=== PATIENT | male | born 1975 | race African-American/Black ===

== ENCOUNTER 2018-10-19 16:03 | Inpatient (IN) | payer SELFPAY ==
[~2018-10-19] VITALS: Ht 180.3 cm; Wt 97.5 kg
[2018-10-19] MEDS ORDERED: ACETAMINOPHEN 500 MG TABLET PO ONE (17:15)
[2018-10-19] MEDS ORDERED: BENZONATATE 100 MG CAPSULE. PO ONE (17:15)
[2018-10-19] MEDS ORDERED: IV NORMAL SALINE 1000ML BAG 1,000 ML IV ONE (17:15)
[2018-10-19] MEDS ORDERED: predniSONE 10 MG TABLET PO ONE (17:15)
[2018-10-19] MEDS ORDERED: IPRATRPIUM/ALBUTEROL 0.5/2.5MG 3 ML NEBU. NEB ONE (17:15)
--- NOTE | 2018-10-19 17:18 | PHYS DOC ---
Adult General Chief Complaint Chief Complaint: FEVER HPI HPI Patient is a 43 year old male who presents with 2 weeks of cough, chills, fever , nausea. Patient states he did cough up some mucus imaging was going. Patient arrives with a fever of 100.2, heart rate 125, 94% on room air. (TREVON MIRELES APRN) Review of Systems Review of Systems Constitutional: fever or chills [] Eyes: Denies change in visual acuity, redness, or eye pain [] HENT: Denies nasal congestion or sore throat [] Respiratory: cough or shortness of breath [] Cardiovascular: No additional information not addressed in HPI [] GI: Denies abdominal pain, + nausea, denies vomiting, denies bloody stools or nice diarrhea [] : Denies dysuria or hematuria [] Musculoskeletal: Denies back pain or joint pain [] Integument: Denies rash or skin lesions [] Neurologic: Denies headache, focal weakness or sensory changes [] All other systems were reviewed and found to be within normal limits, except as documented in this note. (TREVON MIRELES APRN) Current Medications Current Medications Current Medications Medications (Trade) Dose Ordered Sig/Shabbir Start Time Stop Time Status Last Admin Dose Admin Acetaminophen (Tylenol) 1,000 mg 1X ONCE 10/19/18 17:10/19/18 17:25 DC 10/19/18 17:35 1,000 MG Albuterol/ Ipratropium (Duoneb) 3 ml 1X ONCE 10/19/18 17:15 10/19/18 17:25 DC 10/19/18 17:40 3 ML Benzonatate (Tessalon Perle) 100 mg 1X ONCE 10/19/18 17:15 10/19/18 17:25 DC 10/19/18 17:35 100 MG Prednisone (Prednisone) 50 mg 1X ONCE 10/19/18 17:15 10/19/18 17:25 DC 10/19/18 17:35 50 MG Sodium Chloride 1,000 ml @ 1,000 mls/hr 1X ONCE 10/19/18 17:15 10/19/18 18:14 DC 10/19/18 17:35 1,000 MLS/HR (LENY BLOOM MD) Allergies Allergies Allergies Coded Allergies Type Severity Reaction Last Updated Verified No Known Drug Allergies 10/19/18 No (LENY BLOOM MD) Physical Exam Physical Exam Constitutional: Well developed, well nourished, no acute distress, non-toxic appearance. [] HENT: Normocephalic, atraumatic, bilateral external ears normal, oropharynx moist, no oral exudates, nose normal. [] Eyes: PERRLA, EOMI, conjunctiva normal, no discharge. [] Neck: Normal range of motion, no tenderness, supple, no stridor. [] Cardiovascular:Heart rate tachycardia rhythm, no murmur [] Lungs & Thorax: Bilateral upper breath sounds clear to auscultation in bilateral lower breath sounds have slight coarse sounds to auscultation.[] Abdomen: Bowel sounds normal, soft, no tenderness, no masses, no pulsatile masses. [] Skin: Warm, dry, no erythema, no rash. [] Back: No tenderness, no CVA tenderness. [] Extremities: No tenderness, no cyanosis, no clubbing, ROM intact, no edema. [] Neurologic: Alert and oriented X 3, normal motor function, normal sensory function, no focal deficits noted. [] Psychologic: Affect normal, judgement normal, mood normal. [] (TREVON MIRELES APRN) Current Patient Data Vital Signs Vital Signs Date Time Temp Pulse Resp B/P (MAP) Pulse Ox O2 Delivery O2 Flow Rate FiO2 10/19/18 18:53 146/68 (94) Room Air 10/19/18 17:41 94 10/19/18 16:57 100.2 124 20 100.2 (LENY BLOOM MD) Lab Values Laboratory Tests Test 10/19/18 19:00 Lactic Acid Level 1.3 mmol/L (0.4-2.0) (LENY BLOOM MD) Lab Values Laboratory Tests Test 10/19/18 19:00 Lactic Acid Level 1.3 mmol/L (0.4-2.0) (TREVON MIRELES APRN) EKG EKG Sinus tachy and no STEMI Interpretation Time: [address] Bloom (TREVON MIRELES APRN) Radiology/Procedures Radiology/Procedures [] (TREVON MIRELES APRN) Impressions: [facility] [address] [place] [address] IMAGING REPORT Signed PATIENT: EPI DIOR ACCOUNT: [id number] : 1975 LOCATION: ER AGE: 43 SEX: M EXAM STATUS: REG ER ORD. PHYSICIAN: TREVON MIRELES APRN REASON: cough PROCEDURE: CHEST PA & LATERAL EXAM: PA and Lateral Views of the Chest DATE: 10/19/2018 5:18 PM INDICATION: COUGH, WHEEZING, MID-CHEST PAIN X2 WEEKS COMPARISON: No Prior FINDINGS: The heart is not enlarged. Prominence of the pulmonary arterial trunk may be seen with pulmonary arterial hypertension. Airspace opacities in the left lower lobe at the lateral and posterior costophrenic angle, likely consolidation. No pleural effusion or pneumothorax. IMPRESSION: 1. Left lung base airspace opacities, likely consolidative process such as pneumonia. 2. Prominence of pulmonary arterial trunk may be seen with pulmonary arterial hypertension. Electronically signed by: Henok Ruff MD (10/19/2018 5:50 PM) [facility] DICTATED and SIGNED BY: HENOK RUFF MD DATE: 10/19/18 9370 (TREVON MIRELES APRN) Course & Med Decision Making Course & Med Decision Making Patient is a 43 year old male who presents with 2 weeks of cough, chills, fever , nausea. Patient states he did cough up some mucus imaging was going. Patient arrives with a fever of 100.2, heart rate 125, 94% on room air. Alert and oriented. Speaks in full clear sentences. Mucous membranes are moist. Skin is pink warm and dry. Abdomen is soft and nontender. Lungs are clear in upper lobes but have slight coarse sounds to lower lobes bilaterally. Heart rate tachycardia but no murmur. No peripheral edema. Throat is pink and without exudates or swelling. Bilateral ear tympanic are boggy in color. Ambulatory with a steady gait. States he has chest tightness and some shortness of breath. Chest xray shows 1. Left lung base airspace opacities, likely consolidative process such as pneumonia. 2. Prominence of pulmonary arterial trunk may be seen with pulmonary arterial hypertension. Heart rate 102. 93% on RA when sitting. Walking O2 Saturation is 89% with a heart rate of 119. Patient to be admitted for Pneumonia and to receive IV antibiotics. Blood cultures and Lactic acid have been drawn and sent to lab. 1925: Lab has called and states CBC and BMP are hemolyzed and have to be redrawn. I have spoken to Dr Franklin concerning admission. (TREVON MIRELES APRN) Course & Med Decision Making Staff Physician Addendum: I was working in the ER during the course of this patient's visit. I was available for consultation as needed, but I was not directly involved in the care of this patient. (LENY BLOOM MD) Dragon Disclaimer Dragon Disclaimer This electronic medical record was generated, in whole or in part, using a voice recognition dictation system. (TREVON MIRELES APRN) Departure Departure Impression: Primary Impression: Pneumonia Disposition: 09 ADMITTED INPATIENT Admitting Physician: Jesus Manuel Feliciano (TREVON MIRELES APRN) Condition: STABLE Referrals: UNKNOWN PCP NAME (PCP) Problem Qualifiers Primary Impression: Pneumonia Pneumonia type: due to unspecified organism Laterality: left Lung location : lower lobe of lung Qualified Codes: J18.1 - Lobar pneumonia, unspecified organism TREVON MIRELES APRN Oct 19, 2018 17:18 LENY BLOOM MD Oct 20, 2018 08:10
--- NOTE | 2018-10-19 17:53 | RAD ---
EXAM: PA and Lateral Views of the Chest DATE: 10/19/2018 5:18 PM INDICATION: COUGH, WHEEZING, MID-CHEST PAIN X2 WEEKS COMPARISON: No Prior FINDINGS: The heart is not enlarged. Prominence of the pulmonary arterial trunk may be seen with pulmonary arterial hypertension. Airspace opacities in the left lower lobe at the lateral and posterior costophrenic angle, likely consolidation. No pleural effusion or pneumothorax. IMPRESSION: 1. Left lung base airspace opacities, likely consolidative process such as pneumonia. 2. Prominence of pulmonary arterial trunk may be seen with pulmonary arterial hypertension. Electronically signed by: Henok Christina MD (10/19/2018 5:50 PM) [facility]
[2018-10-19] MEDS ORDERED: cefTRIAXone IV Push 1 GM VIAL. IVP ONE (19:15)
[2018-10-19] MEDS ORDERED: DOXYCYCLINE HYCLATE 100 MG in IV DEXTROSE 5% 100ML 100 ML IV ONE (19:15)
[2018-10-19] MEDS ORDERED: ONDANSETRON PF 4 MG/2 ML VIAL. IV PRN (19:30)
[2018-10-19] MEDS ORDERED: ACETAMINOPHEN 325 MG TABLET. PO PRN (19:30)
[2018-10-19] MEDS ORDERED: fentaNYL PF VIAL 100 MCG/2 ML VIAL IV PRN (19:30)
[2018-10-19] MEDS: IPRATRPIUM/ALBUTEROL 0.5/2.5MG 3 ML NEBU. NEB SCH (20:00)
[2018-10-19 20:15] LABS: BASO # 0.1 x10^3/uL (0.0-0.2); BASO % 1 % (0-3); EOS % 0 % (0-3); HEMATOCRIT 35.8 % (39.0-53.0); HEMOGLOBIN 11.7 g/dL (13.0-17.5); LYMPH % 5 % (24-48); MEAN CORPUSCULAR HEMOGLOBIN 28 pg (25-35); MEAN CORPUSCULAR HGB CONC 33 g/dL (31-37); MEAN CORPUSCULAR VOLUME 85 fL (79-100); MONO # 0.5 x10^3/uL (0.0-1.1); MONO % 3 % (0-9); NEUT # 16.2 x10^3uL (1.8-7.7); NEUT % 91 % (31-73); PLATELET COUNT 313 x10^3/uL (140-400); RED BLOOD COUNT 4.22 x10^6/uL (4.30-5.70); RED CELL DISTRIBUTION WIDTH 13.3 % (11.5-14.5); WHITE BLOOD COUNT 17.8 x10^3/uL (4.0-11.0)
[2018-10-19 20:24] LABS: CALCIUM 9.5 mg/dL (8.5-10.1); GFR 98.7; POTASSIUM 4.3 mmol/L (3.5-5.1)
[2018-10-19 20:35] LABS: INFLUENZA A PATIENT NEGATIVE (NEGATIVE); INFLUENZA B PATIENT NEGATIVE (NEGATIVE)
[2018-10-19 22:42] LABS: % EOS 1 % (0-5); % LYMPHS 4 % (24-48); % MONOS 4 % (0-10); % SEGS 91 % (35-66); OVALOCYTES OCC; PLT ESTIMATE ADEQUATE (ADEQUATE); SCHISTOCYTES OCC
[2018-10-19 23:00] VITALS: BP 114/67
--- NOTE | 2018-10-20 00:23 | NUR ---
no home medications reported. reports no preference for pharmacy. Addendum: 10/20/18 at 0024 by REHAN RODRIGUEZ RN Amended: Links added.
[2018-10-20 03:12] VITALS: BP 121/66
[2018-10-20 07:00] VITALS: BP 122/70
[2018-10-20] MEDS: IPRATRPIUM/ALBUTEROL 0.5/2.5MG 3 ML NEBU. NEB SCH (07:36)
[2018-10-20] MEDS ORDERED: guaiFENesin DM 200MG/20MG 10 ML SYRUP PO PRN (08:30)
[2018-10-20] MEDS ORDERED: AMOX1TAB61 PO (08:43)
[2018-10-20] MEDS ORDERED: cefTRIAXone IV Push 1 GM VIAL. IVP SCH ×2 (08:45→20:00)
--- NOTE | 2018-10-20 08:45 | PDOC1 ---
History and Physical Date of Admission Date of Admission DATE: 10/20/18 TIME: 08:36 Source Source: Chart review, Patient History of Present Illness History of Present Illness En is a 43 yo male admit overnight with pneumonia. He has not felt well for 2 weeks, but then markedly worse yesteday and last night, acute dyspnea, weakness and cough with sputum. In ER, fever of 100.2, heart rate 125, 94% on room air. 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 no home meds, no PMH Past Medical History Cardiovascular: No pertinent hx Pulmonary: No pertinent hx GI: No pertinent hx Heme/Onc: No pertinent hx Rheumatologic: No pertinent hx Infectious disease: No pertinent hx Endocrine: No pertinent hx Family History Family History: Diabetes (mom) Family History: Parent Social History Smoke: No ALCOHOL: rare Drugs: None Current Problem List Problem List Problems Medical Problems: (1) Pneumonia Status: Acute Current Medications Current Medications Current Medications Acetaminophen (Tylenol) 1,000 mg 1X ONCE PO Last administered on 10/19/18at 17: 35; Start 10/19/18 at 17:15; Stop 10/19/18 at 17:25; Status DC Benzonatate (Tessalon Perle) 100 mg 1X ONCE PO Last administered on 10/19/18at 17:35; Start 10/19/18 at 17:15; Stop 10/19/18 at 17:25; Status DC Prednisone (Prednisone) 50 mg 1X ONCE PO Last administered on 10/19/18at 17:35 ; Start 10/19/18 at 17:15; Stop 10/19/18 at 17:25; Status DC Albuterol/ Ipratropium (Duoneb) 3 ml 1X ONCE NEB Last administered on at 17:40; Start 10/19/18 at 17:15; Stop 10/19/18 at 17:25; Status DC Sodium Chloride 1,000 ml @ 1,000 mls/hr 1X ONCE IV Last administered on at 17:35; Start 10/19/18 at 17:15; Stop 10/19/18 at 18:14; Status DC Doxycycline Hyclate 100 mg/ Dextrose 100 ml @ 50 mls/hr 1X ONCE IV Last administered on 10/19/18at 19:18; Start 10/19/18 at 19:15; Stop 10/19/18 at 21:14 ; Status DC Ceftriaxone Sodium (Rocephin) 1 gm 1X ONCE IVP Last administered on 10/19/18at 19:17; Start 10/19/18 at 19:15; Stop 10/19/18 at 19:16; Status DC Ondansetron HCl (Zofran) 4 mg PRN Q8HRS PRN IV NAUSEA/VOMITING; Start 10/19/18 at 19:30; Stop 10/20/18 at 19:29 Fentanyl Citrate (Fentanyl 2ml Vial) 50 mcg PRN Q1HR PRN IV PAIN; Start at 19:30; Stop 10/20/18 at 19:29 Acetaminophen (Tylenol) 650 mg PRN Q4HRS PRN PO FEVER; Start 10/19/18 at 19:30 ; Stop 10/20/18 at 19:29 Albuterol/ Ipratropium (Duoneb) 3 ml RTQID NEB Last administered on 10/20/18at 07:36; Start 10/19/18 at 20:00; Stop 10/20/18 at 19:59 Allergies Allergies: Coded Allergies: No Known Drug Allergies (Unverified , 10/19/18) ROS General: YES: Chills, Fatigue, Malaise PSYCHOLOGICAL ROS: No: Anxiety, Behavioral Disorder, Concentration difficultie , Decreased libido, Depression, Disorientation, Hallucinations, Hostility, Irritablity, Memory difficulties, Mood Swings, Obsessive thoughts, Physical abuse, Sexual abuse, Sleep disturbances, Suicidal ideation, Other Eyes: No Blurry vision, No Decreased vision, No Double vision, No Dry eyes, No Excessive tearing, No Eye Pain, No Itchy Eyes, No Loss of vision, No Photophobia , No Scotomata, No Uses contacts, No Uses glasses, No Other HEENT: No: Heacaches, Visual Changes, Hearing change, Nasal congestion, Nasal discharge, Oral lesions, Sinus pain, Sore Throat, Epistaxis, Sneezing, Snoring, Tinnitus, Vertigo, Vocal changes, Other Respiratory: YES: SOB with excertion, Sputum Changes Cardiovascular: No Chest Pain, No Palpitations, No Orthopnea, No Paroxysmal Noc. Dyspnea, No Edema, No Lt Headedness, No Other Gastrointestinal: No Nausea, No Vomiting, No Abdominal Pain, No Diarrhea, No Constipation, No Melena, No Hematochezia, No Other Genitourinary: No Dysuria, No Frequency, No Incontinence, No Hematuria, No Retention, No Discharge, No Urgency, No Pain, No Flank Pain, No Other, No , No , No , No , No , No , No Musculoskeletal: No Gait Disturbance, No Joint Pain, No Joint Stiffness, No Joint Swelling, No Muscle Pain, No Muscular Weakness, No Pain In:, No Swelling In:, No Other Neurological: No Behavorial Changes, No Bowel/Bladder ControlChng, No Confusion , No Dizziness, No Gait Disturbance, No Headaches, No Impaired Coord/balance, No Memory Loss, No Numbness/Tingling, No Seizures, No Speech Problems, No Tremors, No Visual Changes, No Weakness, No Other Skin: No Dry Skin, No Eczema, No Hair Changes, No Lumps, No Mole Changes, No Mottling, No Nail Changes, No Pruritus, No Rash, No Skin Lesion Changes, No Other, No Acne Physical Exam General: Alert, Oriented X3, Cooperative, No acute distress HEENT: PERRLA Lungs: Normal air movement, Other (rales, ) Heart: S1S2, no murmurs Rectal Exam: not examined Extremities: No cyanosis Skin: No rashes Neuro: Normal gait, Normal tone, Sensation intact Psych/Mental Status: Mental status NL, Mood NL Vitals Vitals Vital Signs Date Time Temp Pulse Resp B/P (MAP) Pulse Ox O2 Delivery O2 Flow Rate FiO2 10/20/18 07:38 92 Room Air 10/20/18 03:12 97.4 75 20 121/66 (84) 97.4 Labs Labs Laboratory Tests Test 10/19/18 19:00 10/19/18 19:30 10/19/18 20:00 Lactic Acid Level 1.3 mmol/L (0.4-2.0) Influenza Type A Antigen Negative (NEGATIVE) Influenza Type B Antigen Negative (NEGATIVE) White Blood Count 17.8 x10^3/uL (4.0-11.0) Red Blood Count 4.22 x10^6/uL (4.30-5.70) Hemoglobin 11.7 g/dL (13.0-17.5) Hematocrit 35.8 % (39.0-53.0) Mean Corpuscular Volume 85 fL (79-100) Mean Corpuscular Hemoglobin 28 pg (25-35) Mean Corpuscular Hemoglobin Concent 33 g/dL (31-37) Red Cell Distribution Width 13.3 % (11.5-14.5) Platelet Count 313 x10^3/uL (140-400) Neutrophils (%) (Auto) 91 % (31-73) Lymphocytes (%) (Auto) 5 % (24-48) Monocytes (%) (Auto) 3 % (0-9) Eosinophils (%) (Auto) 0 % (0-3) Basophils (%) (Auto) 1 % (0-3) Neutrophils # (Auto) 16.2 x10^3uL (1.8-7.7) Lymphocytes # (Auto) 1.0 x10^3/uL (1.0-4.8) Monocytes # (Auto) 0.5 x10^3/uL (0.0-1.1) Eosinophils # (Auto) 0.0 x10^3/uL (0.0-0.7) Basophils # (Auto) 0.1 x10^3/uL (0.0-0.2) Segmented Neutrophils % 91 % (35-66) Lymphocytes % 4 % (24-48) Monocytes % 4 % (0-10) Eosinophils % 1 % (0-5) Platelet Estimate Adequate (ADEQUATE) Large Platelets Occ Ovalocytes Occ Crenated Cell Present Schistocytes Occ Sodium Level 135 mmol/L (136-145) Potassium Level 4.3 mmol/L (3.5-5.1) Chloride Level 100 mmol/L (98-107) Carbon Dioxide Level 24 mmol/L (21-32) Anion Gap 11 (6-14) Blood Urea Nitrogen 13 mg/dL (8-26) Creatinine 1.0 mg/dL (0.7-1.3) Estimated GFR (Cockcroft-Gault) 98.7 Glucose Level 120 mg/dL (70-99) Calcium Level 9.5 mg/dL (8.5-10.1) Laboratory Tests Test 10/19/18 19:00 10/19/18 19:30 10/19/18 20:00 Lactic Acid Level 1.3 mmol/L (0.4-2.0) Influenza Type A Antigen Negative (NEGATIVE) Influenza Type B Antigen Negative (NEGATIVE) White Blood Count 17.8 x10^3/uL (4.0-11.0) Red Blood Count 4.22 x10^6/uL (4.30-5.70) Hemoglobin 11.7 g/dL (13.0-17.5) Hematocrit 35.8 % (39.0-53.0) Mean Corpuscular Volume 85 fL (79-100) Mean Corpuscular Hemoglobin 28 pg (25-35) Mean Corpuscular Hemoglobin Concent 33 g/dL (31-37) Red Cell Distribution Width 13.3 % (11.5-14.5) Platelet Count 313 x10^3/uL (140-400) Neutrophils (%) (Auto) 91 % (31-73) Lymphocytes (%) (Auto) 5 % (24-48) Monocytes (%) (Auto) 3 % (0-9) Eosinophils (%) (Auto) 0 % (0-3) Basophils (%) (Auto) 1 % (0-3) Neutrophils # (Auto) 16.2 x10^3uL (1.8-7.7) Lymphocytes # (Auto) 1.0 x10^3/uL (1.0-4.8) Monocytes # (Auto) 0.5 x10^3/uL (0.0-1.1) Eosinophils # (Auto) 0.0 x10^3/uL (0.0-0.7) Basophils # (Auto) 0.1 x10^3/uL (0.0-0.2) Segmented Neutrophils % 91 % (35-66) Lymphocytes % 4 % (24-48) Monocytes % 4 % (0-10) Eosinophils % 1 % (0-5) Platelet Estimate Adequate (ADEQUATE) Large Platelets Occ Ovalocytes Occ Crenated Cell Present Schistocytes Occ Sodium Level 135 mmol/L (136-145) Potassium Level 4.3 mmol/L (3.5-5.1) Chloride Level 100 mmol/L (98-107) Carbon Dioxide Level 24 mmol/L (21-32) Anion Gap 11 (6-14) Blood Urea Nitrogen 13 mg/dL (8-26) Creatinine 1.0 mg/dL (0.7-1.3) Estimated GFR (Cockcroft-Gault) 98.7 Glucose Level 120 mg/dL (70-99) Calcium Level 9.5 mg/dL (8.5-10.1) VTE Prophylaxis Ordered VTE Prophylaxis Devices: No VTE Pharmacological Prophylaxi: No Assessment/Plan Assessment/Plan sepsis pneumonia overweight, BMI 30 TRUONG GATES MD Oct 20, 2018 08:45
--- NOTE | 2018-10-20 08:46 | PDOC3 ---
Discharge Summary Visit Information Date of Admission: Oct 19, 2018 Date of Discharge: Oct 20, 2018 Admitting Diagnosis: sepsis Final Diagnosis sepsis pneumonia overweight, BMI 30 Problems Medical Problems: (1) Pneumonia Status: Acute Brief Hospital Course Allergies Allergies Coded Allergies Type Severity Reaction Last Updated Verified No Known Drug Allergies 10/19/18 No Vital Signs Vital Signs Date Time Temp Pulse Resp B/P (MAP) Pulse Ox O2 Delivery O2 Flow Rate FiO2 10/20/18 07:38 92 Room Air 10/20/18 03:12 97.4 75 20 121/66 (84) 97.4 Lab Results Laboratory Tests Test 10/19/18 19:00 10/19/18 19:30 10/19/18 20:00 Lactic Acid Level 1.3 mmol/L (0.4-2.0) Influenza Type A Antigen Negative (NEGATIVE) Influenza Type B Antigen Negative (NEGATIVE) White Blood Count 17.8 x10^3/uL (4.0-11.0) Red Blood Count 4.22 x10^6/uL (4.30-5.70) Hemoglobin 11.7 g/dL (13.0-17.5) Hematocrit 35.8 % (39.0-53.0) Mean Corpuscular Volume 85 fL (79-100) Mean Corpuscular Hemoglobin 28 pg (25-35) Mean Corpuscular Hemoglobin Concent 33 g/dL (31-37) Red Cell Distribution Width 13.3 % (11.5-14.5) Platelet Count 313 x10^3/uL (140-400) Neutrophils (%) (Auto) 91 % (31-73) Lymphocytes (%) (Auto) 5 % (24-48) Monocytes (%) (Auto) 3 % (0-9) Eosinophils (%) (Auto) 0 % (0-3) Basophils (%) (Auto) 1 % (0-3) Neutrophils # (Auto) 16.2 x10^3uL (1.8-7.7) Lymphocytes # (Auto) 1.0 x10^3/uL (1.0-4.8) Monocytes # (Auto) 0.5 x10^3/uL (0.0-1.1) Eosinophils # (Auto) 0.0 x10^3/uL (0.0-0.7) Basophils # (Auto) 0.1 x10^3/uL (0.0-0.2) Segmented Neutrophils % 91 % (35-66) Lymphocytes % 4 % (24-48) Monocytes % 4 % (0-10) Eosinophils % 1 % (0-5) Platelet Estimate Adequate (ADEQUATE) Large Platelets Occ Ovalocytes Occ Crenated Cell Present Schistocytes Occ Sodium Level 135 mmol/L (136-145) Potassium Level 4.3 mmol/L (3.5-5.1) Chloride Level 100 mmol/L (98-107) Carbon Dioxide Level 24 mmol/L (21-32) Anion Gap 11 (6-14) Blood Urea Nitrogen 13 mg/dL (8-26) Creatinine 1.0 mg/dL (0.7-1.3) Estimated GFR (Cockcroft-Gault) 98.7 Glucose Level 120 mg/dL (70-99) Calcium Level 9.5 mg/dL (8.5-10.1) Laboratory Tests Test 10/19/18 19:00 10/19/18 19:30 10/19/18 20:00 Lactic Acid Level 1.3 mmol/L (0.4-2.0) Influenza Type A Antigen Negative (NEGATIVE) Influenza Type B Antigen Negative (NEGATIVE) White Blood Count 17.8 x10^3/uL (4.0-11.0) Red Blood Count 4.22 x10^6/uL (4.30-5.70) Hemoglobin 11.7 g/dL (13.0-17.5) Hematocrit 35.8 % (39.0-53.0) Mean Corpuscular Volume 85 fL (79-100) Mean Corpuscular Hemoglobin 28 pg (25-35) Mean Corpuscular Hemoglobin Concent 33 g/dL (31-37) Red Cell Distribution Width 13.3 % (11.5-14.5) Platelet Count 313 x10^3/uL (140-400) Neutrophils (%) (Auto) 91 % (31-73) Lymphocytes (%) (Auto) 5 % (24-48) Monocytes (%) (Auto) 3 % (0-9) Eosinophils (%) (Auto) 0 % (0-3) Basophils (%) (Auto) 1 % (0-3) Neutrophils # (Auto) 16.2 x10^3uL (1.8-7.7) Lymphocytes # (Auto) 1.0 x10^3/uL (1.0-4.8) Monocytes # (Auto) 0.5 x10^3/uL (0.0-1.1) Eosinophils # (Auto) 0.0 x10^3/uL (0.0-0.7) Basophils # (Auto) 0.1 x10^3/uL (0.0-0.2) Segmented Neutrophils % 91 % (35-66) Lymphocytes % 4 % (24-48) Monocytes % 4 % (0-10) Eosinophils % 1 % (0-5) Platelet Estimate Adequate (ADEQUATE) Large Platelets Occ Ovalocytes Occ Crenated Cell Present Schistocytes Occ Sodium Level 135 mmol/L (136-145) Potassium Level 4.3 mmol/L (3.5-5.1) Chloride Level 100 mmol/L (98-107) Carbon Dioxide Level 24 mmol/L (21-32) Anion Gap 11 (6-14) Blood Urea Nitrogen 13 mg/dL (8-26) Creatinine 1.0 mg/dL (0.7-1.3) Estimated GFR (Cockcroft-Gault) 98.7 Glucose Level 120 mg/dL (70-99) Calcium Level 9.5 mg/dL (8.5-10.1) Brief Hospital Course Mr. Woody is a 43 old male, admit with T 100.2, P 125, white count 17 CXR showed RLL consolidation, rocephin and doxy given, HR in AM down to 75 , he felt much better DC on augmentin, no insurance Discharge Information Condition at Discharge: Improved Follow Up: Weeks Disposition/Orders: D/C to Home Scheduled Amoxicillin/Potassium Clav (Augmentin 875-125 Tablet) 1 Each Tablet, 1 TAB PO BID for pneumonia, #14 Prescribed by: TRUONG GATES on 10/20/18 0843 Patient Instructions Patient Instructions A/D TRUONG Woods MD Oct 20, 2018 08:46
[2018-10-20] MEDS ORDERED: DOXYCYCLINE HYCLATE 100 MG TABLET PO SCH (09:00)
[2018-10-20] MEDS ORDERED: BENZONATATE 100 MG CAPSULE. PO SCH (09:00)
[2018-10-20 11:00] VITALS: BP 132/74
--- NOTE | 2018-10-20 11:07 | NUR ---
Discharge Note: EPI DIOR Discharge instructions and discharge home medications reviewed with Patient and a copy given. All questions have been answered and understanding verbalized. The following instructions and handouts were given: Patient given education regarding pneumonia and education regarding antibiotics. Discontinued lines and drains: Iv removed per protocol. Patient discharged home by self.
--- NOTE | 2018-10-20 17:10 | EKG ---
[facility] [address] [place] [address] Test Date: 2018-10-19 Test Time: 17:17:15 Pat Name: EPI DIOR Department: Room: 534 1 Gender: M Vice President Process: : 1975 Requested By: TREVON MIRELES Order Number: [id number] Reading MD: Bobby Zuniga MD Measurements Intervals [place] Rate: 124 P: -47 NE: 108 QRS: 2 QRSD: 72 T: 10 QT: 292 QTc: 423 Interpretive Statements SINUS TACHYCARDIA Electronically Signed On 10-25-2018 14:01:31 CDT by Bobby Zuniga MD
== END 2018-10-20 11:00 | disposition home or self-care (01) | DRG 871 ==
LOC: ER 16:03 → 5 NORTH 19:01
PROVIDERS: ADMIT Family Medicine; ATTEND Family Medicine
DX: A41.9 Sepsis, unspecified organism (principal); J18.9 Pneumonia, unspecified organism; E66.3 Overweight; Z68.30 Body mass index [BMI] 30.0-30.9, adult; Z83.3 Family history of diabetes mellitus
CPT/HCPCS: 36415; 71046; 80048; 83605; 85007; 85025; 87040; 87804; 93005; 94640; 96361; 96365; 96375; J0696; J3490; J7030; J7512; J7620; 99285-25